=== PATIENT | female | born 1985 | race Caucasian/White ===

== ENCOUNTER 2019-06-10 09:57 | Inpatient (IN) ==
[2019-06-10] MEDS ORDERED: *HR* Nalbuphine 10 MG/ML AMPUL IVP PRN (10:14)
[2019-06-10] MEDS ORDERED: Famotidine 20 MG/2 ML VIAL IVP PRN (10:14)
[2019-06-10] MEDS ORDERED: Ondansetron 4 MG/2 ML VIAL IVP PRN (10:14)
[2019-06-10] MEDS ORDERED: miSOPROStol 25 MCG TABLET VG PRN (10:14)
[2019-06-10] MEDS ORDERED: Metoclopramide 10 MG/2 ML VIAL IVP PRN (10:14)
[2019-06-10 10:42] LABS: Basophils % 0.3 %; Eosinophils % 0.4 %; Hematocrit 37.3 % (35.3-44.9); Hemoglobin 12.9 g/dL (11.5-15.4); Immature Granulocytes % 1.1 % (0-4); Lymphocytes # 1.3 K/mcL (0.6-4.6); Lymphocytes % 11.5 %; Mean Corpuscular HGB Conc 34.6 g/dL (31.6-35.5); Mean Corpuscular Hemoglobin 30.7 pg (28.0-33.3); Mean Corpuscular Volume 88.8 fL (83.0-100.0); Mean Platelet Volume 11.1 fL (9.4-12.4); Monocytes # 0.4 K/mcL (0.0-1.3); Monocytes % 3.7 %; Neutrophils # 9.4 K/mcL (1.6-8.9); Platelet Count 224 K/mcL (140-400); Red Cell Distribution Width 13.6 % (11.5-14.5); White Blood Count 11.3 K/mcL (4.3-11.1)
[2019-06-10 10:50] LABS: Amphetamine Screen,Urine Negative ng/mL (Cutoff=1000); Barbiturate Screen,Urine Negative ng/mL (Cutoff=200); Benzodiazepines Screen,Urine Negative ng/mL (Cutoff=200); Cannabinoid Screen,Urine Negative ng/mL (Cutoff = 50); Cocaine Screen,Urine Negative ng/mL (Cutoff= 300); Opiate Screen,Urine Negative ng/mL (Cutoff=300); Phencyclidine Screen,Urine Negative ng/mL (Cutoff=25)
[2019-06-10] MEDS ORDERED: EPHEDrine 50 MG/ML VIAL IVP PRN (12:22)
[2019-06-10] MEDS ORDERED: Oxytocin 20 units/ LR 1000 mL 20 UNIT/1,000 ML BAG IVC ONE (13:25)
[2019-06-10] MEDS ORDERED: *HR* FentaNYL (PF) 100 MCG/2 ML VIAL ONE (13:46)
[2019-06-10] MEDS ORDERED: Ropivacaine/PF 0.2% 20 ML VIAL ONE (13:46)
[2019-06-10] MEDS: Ringers Solution, Lactated 1,000 ML IVC SCH ×2 (14:26→21:16)
[2019-06-10] MEDS ORDERED: EPHEDrine 50 MG/ML VIAL ONE (14:28)
[2019-06-10] MEDS: Epidural Premix (fent/bupiv) 110 ML EP SCH ×2 (14:36→21:16)
[2019-06-10] MEDS ORDERED: Oxytocin 20 units/ LR 1000 mL 20 UNIT/1,000 ML BAG IVC SCH (21:30)
[2019-06-10] MEDS ORDERED: Lidocaine 1% 20 ML MDV INFILT PRN (22:52)
[2019-06-10] MEDS ORDERED: Acetaminophen 325 MG TABLET PO ONE (23:29)
[2019-06-11] MEDS ORDERED: Ibuprofen 600 MG TABLET PO ONE (02:21)
[2019-06-11] MEDS ORDERED: Benzocaine/Menthol 56 GM AEROSOL SPRAY TP PRN (03:50)
[2019-06-11] MEDS ORDERED: Acetaminophen 325 MG TABLET PO PRN (03:50)
[2019-06-11] MEDS ORDERED: *HR* HYDROcodone/Acet 5/325 mg TABLET PO PRN (03:50)
[2019-06-11] MEDS ORDERED: Oxytocin 20 units/ LR 1000 mL 20 UNIT/1,000 ML BAG IVC SCH (03:50)
[2019-06-11] MEDS: Prenatal Vit/FA 1 EACH TABLET PO SCH (08:14)
[2019-06-11 09:20] LABS: Basophils % 0.1 %; Eosinophils % 0.1 %; Hematocrit 30.7 % (35.3-44.9); Immature Granulocytes % 0.8 % (0-4); Lymphocytes # 1.2 K/mcL (0.6-4.6); Lymphocytes % 7.9 %; Mean Corpuscular HGB Conc 33.2 g/dL (31.6-35.5); Mean Corpuscular Hemoglobin 31.1 pg (28.0-33.3); Mean Corpuscular Volume 93.6 fL (83.0-100.0); Mean Platelet Volume 11.1 fL (9.4-12.4); Monocytes # 0.6 K/mcL (0.0-1.3); Monocytes % 4.1 %; Neutrophils # 13.1 K/mcL (1.6-8.9); Platelet Count 184 K/mcL (140-400); Red Blood Count 3.28 M/mcL (3.82-4.97); Red Cell Distribution Width 13.8 % (11.5-14.5)
[2019-06-11 09:26] LABS: Hemoglobin 10.2 g/dL (11.5-15.4)
[2019-06-11] MEDS: Ibuprofen 600 MG TABLET PO PRN (20:11)
[2019-06-12] MEDS: Ibuprofen 600 MG TABLET PO PRN ×2 (06:38→13:15)
[2019-06-12 08:08] VITALS: BP 105/72
[2019-06-12] MEDS: Prenatal Vit/FA 1 EACH TABLET PO SCH (09:29)
== END 2019-06-12 15:25 | disposition home or self-care (01) | DRG 768 ==
LOC: 1NENULAB 09:57 → 1NENUOBS 06-11 03:50
PROVIDERS: ADMIT Obstetrics & Gynecology; ATTEND Obstetrics & Gynecology